=== PATIENT | male | born 1995 | race Caucasian/White ===

== ENCOUNTER → 2019-10-21 | Outpatient (CLI) | payer BC ==
[~2019-10-21] MED LIST: Pepcid40 MG PO
[2019-10-21 10:26] LABS: CHOL/HDL RATIO 5.8; Cholesterol 221 mg/dL (50-200); HDL Cholesterol 38 mg/dL (>39); LDL/HDL RATIO 3.8; Low Density Lipoprotein Chol 145 mg/dL (0-110); Triglycerides 190 mg/dL (30-140); Troponin I <0.015 ng/mL (0.000-0.040); Very Low Density Lipoprot Chol 38 mg/dL (6-28)
== END | disposition home or self-care (01) ==
LOC: LAB 08:20 → LAB SHORT 08:20
PROVIDERS: Family Medicine
DX: R07.89 Other chest pain (principal)
CPT/HCPCS: 36415; 80061; 84484; 86141